=== PATIENT | female | born 2000 | race Caucasian/White ===

== ENCOUNTER 2021-04-29 21:03 | Emergency (ER) | payer SELFPAY ==
[~2021-04-29] VITALS: Ht 160 cm; Wt 102.3 kg
[2021-04-29 21:26] VITALS: BP 129/86; PULSE 85; TEMP 98.1
== END 2021-04-29 21:55 | disposition home or self-care (01) ==
LOC: COL.ER 21:03
DX: S46.912A Strain of unspecified muscle, fascia and tendon at shoulder and upper arm level, left arm, initial encounter (principal); S00.81XA Abrasion of other part of head, initial encounter; Y04.8XXA Assault by other bodily force, initial encounter; Y92.59 Other trade areas as the place of occurrence of the external cause; Y99.0 Civilian activity done for income or pay

== ENCOUNTER 2022-04-07 10:00 | Day surgery (SDC) | payer BC ==
[~2022-04-07] VITALS: Ht 160 cm; Wt 97.2 kg
[2022-04-07] VITALS (15 sets, daily range): BP systolic 107–139; BP diastolic 58–77; PULSE 70–87; TEMP 97.7–98.7
[2022-04-07] MEDS ORDERED: MULTI VITAMINS1 TAB PO (11:01)
[2022-04-07] MEDS ORDERED: PERCOCET 325 MG1 TA2 PO (11:55)
[2022-04-07] MEDS ORDERED: MOTRIN 800800 MG/TAB PO (11:55)
--- NOTE | 2022-04-07 16:49 | NUR ---
PATIENT DROWSY BUT AROUSABLE. PATIENT ENCOURAGED TO SIT UP AND HAVE SOME ICE CHIPS. PATIENT REFUSED. PATIENT DENIES PAIN, HOWEVER REPORTS INCREASED NAUSEA. WHEN THIS NURSE ENTERED PATIENT'S ROOM, THE PATIENT WAS SLEEPING. FOUR LAP SITES GLUED AND OPEN TO AIR, CDI. IV TO LEFT HAND WITH LR RUNNING AT 125/HOUR. PATIENT ON 2L PER NC SAT AT 98%. PRUITT TO DD WITH YELLOW URINE, GOOD OUTPUT. CALL LIGHT WITHIN REACH.
--- NOTE | 2022-04-07 19:32 | NUR ---
RECEIVED CHANGE OF SHIFT REPORT FROM DAY SHIFT RN.
[2022-04-08 04:21] VITALS: BP 113/50; PULSE 81; TEMP 97.8
--- NOTE | 2022-04-08 07:12 | NUR ---
CHANGE OF SHIFT REPORT GIVEN TO DAY SHIFT RNKISHA
[2022-04-08 08:00] VITALS: BP 114/63; PULSE 77; TEMP 97.9
[2022-04-08 08:09] VITALS: BP 100/54; PULSE 76; TEMP 98.2
--- NOTE | 2022-04-08 08:20 | NUR ---
Pt doing well this morning. She has been up and voided since having her catheter removed. She is getting around in the room independently. Pain is tolerable rating it a 2/10, even with movement. States she just feels sore. Pt states that her is going to bring her in some breakfast. SCDs removed earlier this am. Call light within reach, will continue to monitor
--- NOTE | 2022-04-08 10:11 | NUR ---
Reviewed discharge instructions with pt and spouse, both verbalized understanding. Discussed follow up appointment and prescriptions. INT removed from left hand. Informed her to notify nursing when she is ready to go so that we can get her a wheelchair to leave.
--- NOTE | 2022-04-08 10:26 | NUR ---
Initial visit; Patient and her thanked Printer Assistant for offering God's blessings and a get well message for Simona.
== END 2022-04-08 10:23 | disposition home or self-care (01) ==
LOC: SDCO 10:00 → SURG 14:36 → SDCO 04-08 10:23
DX: N94.6 Dysmenorrhea, unspecified (principal); N92.0 Excessive and frequent menstruation with regular cycle; R19.2 Visible peristalsis; E66.01 Morbid (severe) obesity due to excess calories; Z68.41 Body mass index [BMI] 40.0-44.9, adult; Z28.310 Unvaccinated for COVID-19
CPT/HCPCS: OP; A4314; J1100; J2405; J2704; J3010; J7120

== ENCOUNTER 2022-10-13 00:53 | Emergency (ER) | payer BC ==
[~2022-10-13] VITALS: Ht 160 cm; Wt 81.8 kg
[~2022-10-13 00:53] MED LIST: MOTRIN 800800 MG/TAB PO; MULTI VITAMINS1 TAB PO; PERCOCET 325 MG1 TA2 PO
[2022-10-13 01:01] VITALS: TEMP 97.5
[2022-10-13 01:28] LABS: BASO % 0.3 % (0.0-2.0); EOS % 0.3 % (0.0-4.0); GRAN # 10.4 K/mm3 (1.4-6.5); GRAN % 68.6 % (42.2-75.2); HEMATOCRIT 41.3 % (37.0-47.0); HEMOGLOBIN 14.7 g/dl (12.5-16.0); LYMPH # 3.4 K/mm3 (1.2-3.4); LYMPH % 22.4 % (20.0-51.0); MEAN CELL VOLUME 93 fl (80.0-100.0); MEAN CORPUSCULAR HEMOGLOBIN 33 pg (27-31); MEAN CORPUSCULAR HGB CONC 36 g/dl (33.0-37.0); MONO # 1.2 K/mm3 (0.1-0.6); MONO % 8.1 % (1.7-9.3); PLATELET COUNT 306 K/mm3 (130-400); RED BLOOD COUNT 4.46 M/mm3 (4.10-5.30); REDCELL DISTRIBUTION WIDTH-CV 11.9 % (11.5-14.5)
[2022-10-13 01:37] LABS: INR 1.1 (0.8-3.0); PROTHROMBIN TIME 13.1 SECONDS (9.7-12.8)
[2022-10-13 01:40] LABS: PARTIAL THROMBOPLASTIN TIME 36.4 SECONDS (26.0-37.0)
[2022-10-13 01:45] LABS: ALANINE AMINOTRANSFERASE 18 U/L (0-55); ALBUMIN 4.3 gm/dL (3.5-5.0); ALKALINE PHOSPHATASE 53 U/L (40-150); ANION GAP 12 mmol/L (7-16); AST,SGOT 14 U/L (5-34); BILIRUBIN,TOTAL 0.5 mg/dL (0.2-1.2); BLOOD UREA NITROGEN 15 mg/dL (7-19); CALCIUM 9.9 mg/dL (8.4-10.2); CARBON DIOXIDE 23 mmol/L (22-29); CHLORIDE 105 mmol/L (98-107); CREATININE, serum 1.08 mg/dL (0.57-1.11); GLUCOSE 98 mg/dL (70-99); LIPASE 17 U/L (8-78); POTASSIUM 3.8 mmol/L (3.5-4.5); SODIUM 140 mmol/L (136-145); TOTAL PROTEIN 7.7 gm/dL (6.2-8.1)
[2022-10-13 01:53] LABS: D-DIMER < 200.00 ng/mLDDu (200-230)
[2022-10-13 01:56] LABS: TROPONIN-I < 0.010 ng/mL (0.00-0.033)
[2022-10-13 04:06] VITALS: BP 125/85; PULSE 60
== END 2022-10-13 04:07 | disposition home or self-care (01) ==
LOC: COL.ER 00:53
PROVIDERS: Emergency Medicine
DX: R07.2 Precordial pain (principal); R94.31 Abnormal electrocardiogram [ECG] [EKG]; D72.829 Elevated white blood cell count, unspecified; F90.9 Attention-deficit hyperactivity disorder, unspecified type; Z79.899 Other long term (current) drug therapy
CPT/HCPCS: J2405